=== PATIENT | male | born 1945 | race Caucasian/White ===

== ENCOUNTER 2025-07-11 | Emergency (ER) | payer OTHER, SELFPAY ==
[2025-07-11 00:01] VITALS: BP 190/96
--- NOTE | 2025-07-11 00:06 | ED.GENMED ---
History of Present Illness
General
Chief Complaint: Flank Pain
Time Seen by Provider: 07/11/25 00:06
History of Present Illness
History of Present Illness:
FOCUSED PAST MEDICAL HISTORY
- High blood pressure
REVIEW OF OLD RECORDS
- Was seen in ED in 2019 related to COVID-19
Note:
CHIEF COMPLAINT(S)
Suspected kidney stone recurrence.
HISTORY OF PRESENT ILLNESS
The patient is a 80-year-old male with a history of recurrent kidney stones, presenting with acute flank pain consistent with previous episodes of nephrolithiasis. The patient reported first passing a kidney stone at home yesterday and experiencing
symptom relief subsequently. However, the symptoms recurred this morning, characterized by similar pain to prior kidney stones, indicating familiarity with his condition. The patient reported nausea and vomiting three times since the onset of todays
symptoms, which started this morning. He has been attempting to stay hydrated despite these episodes. The patient took Tamsulosin and extra strength acetaminophen for symptom relief, with the last acetaminophen dose at 10 AM. He has a history of
receiving medical care for kidney stones at other facilities and prefers treatment at this location. The patient has not yet provided a urine sample due to recent urination but expresses willingness to undergo a CT scan for diagnostic confirmation.
PAST MEDICAL AND SURGICAL HISTORY
Recurrent kidney stones history.
CHRONIC MEDICAL CONDITIONS SIGNIFICANTLY AFFECTING CARE
History of recurrent kidney stones.
MEDICATIONS
The patient has taken Tamsulosin (1 dose earlier in the day) and extra strength acetaminophen, last dosage taken at 10 AM.
REVIEW OF SYSTEMS
- Renal: Flank pain consistent with history of kidney stones.
- Gastrointestinal: Nausea and vomiting experienced.
- General: Attempting hydration, no recent urinalysis due to recent voiding.
PHYSICAL EXAM
General: Alert, appears she is mildly uncomfortable
Skin: Warm, dry.
Head: Normocephalic, atraumatic.
Neck: Supple, trachea midline.
Eye, Ears, Nose, Mouth, and Throat: Oral mucosa moist.
Cardiovascular: Normal peripheral perfusion, no edema.
Respiratory: Respirations are non-labored.
Gastrointestinal: Abdomen nondistended.
Back: Normal range of motion, normal alignment. No CVA tenderness
Musculoskeletal: Normal range of motion, normal strength.
Neurological: Alert and oriented to person, place, time, and situation, no focal neurological deficit observed.
Psychiatric: Cooperative, appropriate mood and affect.
PROBLEM LIST
Acute:
- Suspected nephrolithiasis recurrence.
- Nausea and vomiting.
PLAN
1. Initiate intravenous Toradol for pain management.
2. Conduct CT scan of the abdomen to confirm diagnosis of nephrolithiasis.
3. Administer intravenous fluids for rehydration and to manage nausea.
4. Follow up with the patient after results and symptomatic treatment.
DIFFERENTIAL DIAGNOSIS
The Differential Diagnosis includes, in no particular order and is not limited to:
1. Nephrolithiasis
2. Pyelonephritis
3. Urinary tract infection
4. Abdominal aortic aneurysm
5. Renal colic
6. Musculoskeletal back pain
7. Gastroenteritis
8. Pancreatitis
9. Appendicitis
10. Diverticulitis
RADIOLOGY
- CT shows right perinephric stranding but no sign of ureteral stone
- I also reviewed CT report from [facility] regarding the patient's aorta
LABS
- White count 14.8, hemoglobin normal, sodium 129, creatinine 1.2, bicarb 19
SUMMARY OF ENCOUNTER
The patient presented with symptoms indicative of a kidney stone. Initial imaging did not show any alarming abnormalities. The patient reported familiar pain associated with kidney stones, described as intense and spasm-like. A CT scan without IV
contrast was performed, revealing inflammatory changes but not conclusively visualizing a stone in the ureter. A urinalysis returned with low white blood cells, indicating no urinary tract or kidney infection, but blood was present, suggestive of
possible nephrolithiasis. The patient had taken Tamsulosin (Flomax) earlier. Due to ongoing severe pain, intravenous Toradol was administered for analgesia. The vascular specialist consulted did not find any significant vascular issues. A discussion
with the patient involved the potential need for narcotic pain management due to severe discomfort.
DISPOSITION
Discharge.
ASSESSMENT
The findings and symptoms are consistent with recurrent nephrolithiasis with possible ureteral spasm, leading to severe pain.
EMERGENCY TREATMENTS ADMINISTERED
- Intravenous Toradol.
PLAN
1. Provide adequate pain control with a narcotic before discharge.
2. Advise the patient on hydration and follow-up monitoring of kidney stone symptoms.
3. Discharge with prescription for pain management.
INDEPENDENT REVIEW OF LABS AND INTERPRETATION OF TESTS
My independent review of the urinalysis indicates low white blood cell count suggesting absence of infection, but presence of blood pointing towards nephrolithiasis.
MANAGEMENT OF THE PATIENTS CARE WAS DISCUSSED WITH
The vascular specialist regarding imaging findings, confirming no significant vascular concerns.
PATIENT EDUCATION AND COUNSELING
The patient was educated on the nature and management of kidney stones, the importance of hydration, and pain management options.
FOLLOW-UP INSTRUCTIONS
Please call the office immediately to schedule a follow-up visit for monitoring and management of potential recurrent kidney stones.
MEDICATION RECONCILIATION
- Tamsulosin (Flomax) taken earlier today.
- Intravenous Toradol administered.
- Prescribed a narcotic for ongoing pain management.
MEDICAL DECISION MAKING
-Number and Complexity of Problems Addressed: Chronic conditions affecting care include recurrent nephrolithiasis.
-Data:
Category 1
My independent interpretation of recent urinalysis shows low white blood cells and presence of blood, indicative of a possible kidney stone event.
Discussion of management with a vascular specialist who found no significant concerns from imaging studies.
-Risk:
Consideration of Admission/Observation: Escalation of care including admission/observation was considered given the complexity and risk of the patients presenting complaint, exam findings, and their underlying comorbidities. However, ultimately the
patient is deemed safe for outpatient management with close follow-up. Reasoning: Work-up reassuring, does not reveal any acute life/organ threatening processes, patients symptoms well controlled upon revaluation, reexamination is reassuring, vitals
are stable, patient agreeable with discharge, reliable for follow-up.
DIAGNOSIS
- Nephrolithiasis, unspecified (ICD-10: N20.9).
UPDATE
- I discussed the patient's CT report in which there was some concern for the aorta with Dr. Patricio who doubt serious abdominal etiology
- Patient feels improved after Toradol was given
- Leukocytosis is noted
- Slightly low bicarb, IV fluids were given
- At around 2:40 AM, patient was given Dilaudid due to some increased work of pain but overall appears improved compared to prior
- Appears improved on reassessment at 3:15 AM
- Sent prescription for narcotic analgesia to [facility] in [place]
- I have also given him contact information for Dr. Patricio given the vascular abnormality on CT but we suspect is likely not the cause of his symptoms
- Patient showed me a picture of the stone that he passed yesterday which does appear to be consistent with a small kidney stone
Past History
Past History
ED Past Medical History: HTN, Hypercholesterolemia, Hypothyroidism and Other (History of prostate cancer)
Social History
Tobacco: Non-smoker
Alcohol: None
Personal:
Living: with family
Phy Exam
Physical Exam
Physical Exam:
See HPI
Course
Orders/Labs/Results
Orders:
Orders
07/11/25 00:13
0.9% Sodium Chloride 1000 ml [Nss] 1,000 ml IV BOLUS
Ketorolac [Toradol] 15 mg IV NOW STA
Ondansetron Injectable [Zofran] 4 mg IV NOW STA
07/11/25 00:14
CT Abd/pel Without Iv Or Oral Urgent
Comment:
Reason For Exam: R flank pain
07/11/25 00:19
Complete Blood Count/With Diff Urgent
Comprehensive Metabolic Panel Urgent
Urinalysis Reflex To Culture Urgent
Date Specimen was Collected: 07/11/25
Time Specimen was Collected: 00:16
Urine Microscopic Reflex Cult Urgent
07/11/25 02:36
HYDROmorphone [Dilaudid] 1 mg IV NOW STA
Abnormal Lab Results
07/11/25
00:19
WBC 14.8 H 10^3/uL
(4.8-10.8)
MPV 10.5 H fL
(7.4-10.4)
Abs Immat Gran (auto) 0.1 H 10^3/uL
(0-0.05)
Absolute Neuts (auto) 12.1 H 10^3/uL
(1.4-6.5)
Absolute Monos (auto) 1.4 H 10^3/uL
(0.1-0.6)
Neutrophils % 81.9 H %
(42.2-75.2)
Lymphocytes % 8.3 L %
(20.5-51.1)
Sodium 129 L mmol/L
(135-145)
Carbon Dioxide 19 L mmol/L
(22-30)
BUN 27 H mg/dl
(9-20)
Glucose 146 H mg/dl
(70-99)
Total Bilirubin 1.6 H mg/dl
(0.2-1.3)
ALT 54 H U/L
(0-50)
Urine Ketones 3+ A
(Negative)
Ur Occult Blood Reflex 2+ A
(Negative)
Urine RBC 3-6 A /HPF
(0-2)
Urine Bacteria (Reflex) Few A
(Negative)
Urine Albumin (Reflex) 1+ A
(Neg - Trace)
07/11/25 00:19
07/11/25 00:19
Vital Signs
Initial and Last Documented VS:
Initial Vital Signs
Temp Pulse Resp BP Pulse Ox
36.4 C 74 26 190/96 98
07/11/25 00:01 07/11/25 00:01 07/11/25 00:01 07/11/25 00:01 07/11/25 00:01
Last Documented Vital Signs
Temp Pulse Resp BP Pulse Ox
36.4 C 68 16 160/81 97
07/11/25 00:01 07/11/25 02:44 07/11/25 02:44 07/11/25 02:44 07/11/25 02:44
*Pulse Oximetry
SaO2: 98
Patient hypoxic: no
*Critical Care Note
Total Time (30-74mins, 75-104mins- exclusive of procedures): Not Applicable
ED Attending Note
-
Portions of this chart may have been created with voice recognition software.� Occasional wrong word or��sound alike� substitutions may have occurred due to the inherent limitations of voice recognition software.
Discharge Plan
Departure
Patient Disposition: Home (Routine Discharge)
Date of Disposition: 07/11/25
Time of Disposition: 03:06
Patient with high blood pressure during this ER visit?: Yes
Discharge Problem:
Acute flank pain
Instructions: Flank Pain (DC), BLOOD PRESSURE
Prescriptions:
New
oxycodone-acetaminophen [Percocet] 5-325 mg tablet
1 - 2 tab PO Q6HPRN PRN (Reason: pain) Qty: 14 0RF
ondansetron HCl 4 mg tablet
4 mg PO DAILY PRN (Reason: nausea and vomiting) Qty: 14 0RF
Referrals:
Harsh Patricio III, MD [Active, Vascular Surgery]
Franki Ross MD [Family Provider, Internal Medicine]
Activity Restrictions/Additional Instructions:
The CAT scan shows some inflammation around the right kidney but no sign of a kidney stone or stone in the ureter. The urinalysis shows no sign of infection but does show some blood. I am sending a prescription for a narcotic and nausea medicine
(Zofran) to your pharmacy. If you take the narcotic, take something like MiraLAX to prevent constipation.
I have given you the radiologist interpretation of the CAT scan. Since there was some vascular abnormality, I did contact Dr. Patricio. You could also follow-up with him for evaluation.
Interventions
Interventions:
*Risk Screen - Suicide Last Done: 07/11/25 00:01
*General Assessment Last Done: 07/11/25 00:23
*Neglect/Abuse Screening Last Done: 07/11/25 00:01
*ED COVID-19 Vaccine History Last Done: 07/11/25 00:23
*ED Influenza Vaccine History Last Done: 07/11/25 00:23
OR-Fcpfhp-Dyzbqiuske Assessment Last Done: 07/11/25 01:22
ED-Male Genitourinary Assessment Last Done: 07/11/25 01:22
Discharge Date and Time
Print Language: ANGUILLAN
[2025-07-11 00:23] VITALS: BMI 21.5
[2025-07-11] MEDS: TORADOL 15 MG IV (00:24)
[2025-07-11] MEDS: ZOFRAN 4 MG IV (00:24)
[2025-07-11] MEDS: NSS 1000 IV (00:25)
--- NOTE | 2025-07-11 01:00 | EDRN ---
Patient reports starting to feel better after medications
[2025-07-11 01:07] LABS: ALT (SGPT) 54 U/L (0-50); AST (SGOT) 39 U/L (17-59); Albumin 4.5 g/dl (3.5-5.0); Alkaline Phosphatase 67 U/L (38-126); Blood Urea Nitrogen 27 mg/dl (9-20); Calcium 9.3 mg/dl (8.4-10.2); Carbon Dioxide 19 mmol/L (22-30); Chloride 99 mmol/L (98-107); Estimated Creatinine Clearance 53 ml/min; Glucose 146 mg/dl (70-99); Potassium 4.5 mmol/L (3.5-5.1); Sodium 129 mmol/L (135-145); Total Protein 6.8 g/dl (6.3-8.2); eGFR > 60.00
[2025-07-11 01:29] LABS: Hematocrit 43.3 % (39.0-52.0); Hemoglobin 15.4 g/dL (13.0-18.0); Mean Corp Hgb Conc. 35.6 g/dL (33.0-37.0); Mean Corpuscular Volume 86.1 fL (80.0-94.0); Nucleated Red Blood Cells % 0 % (-); Platelet Count 222 10^3/uL (130-400); Red Cell Dist. Width 13.8 % (11.5-14.5)
--- NOTE | 2025-07-11 01:43 | EDRN ---
Provider in to update patient, patient is in trying to get a urine specimen
[2025-07-11 02:25] LABS: Urine Character Clear (Clear)
[2025-07-11 02:32] LABS: Urine White Cell 0-2 /HPF (0-5)
[2025-07-11] MEDS: DILAUDID 1 MG IV (02:39)
[2025-07-11 02:44] VITALS: BP 160/81
--- NOTE | 2025-07-11 02:44 | EDRN ---
Patient reports pain coming back, medications ordered and given for pain.
[2025-07-11] MEDS: ZOFRAN ODT (ORALLY DISINTEGRATING) 4 MG PO (03:31)
== END 2025-07-11 03:56 | disposition home or self-care (01) ==
LOC: EMR
PROVIDERS: EMERGENCY PHYSICIAN Emergency Medicine; FAMILY PHYSICIAN Internal Medicine
DX: N13.2 Hydronephrosis with renal and ureteral calculous obstruction (principal); R11.2 Nausea with vomiting, unspecified; E03.9 Hypothyroidism, unspecified; E78.00 Pure hypercholesterolemia, unspecified; I10 Essential (primary) hypertension; Z85.46 Personal history of malignant neoplasm of prostate
CPT/HCPCS: 96374; 96375; 96361; 99284; 74176; 80053; 81003; 81015; 85025